=== PATIENT | male | born 1980 | race African-American/Black ===

== ENCOUNTER 2020-09-03 20:38 | Emergency (ER) | payer SELFPAY ==
[~2020-09-03] VITALS: Ht 180.3 cm; Wt 90.3 kg
[2020-09-03 21:08] VITALS: BP 166/100
[2020-09-03] MEDS ORDERED: LIDOCAINE-MPF 1%, 5ML ONE (21:27)
[2020-09-03] MEDS ORDERED: MUPIROCIN OINT 2%, 22GM TP ONE (21:30)
[2020-09-03] MEDS ORDERED: LIDOCAINE-MPF 1%, 5ML INFIL ONE (21:30)
[2020-09-03] MEDS ORDERED: SULFAMETH./TRIMETHOPRIM DS 800MG/160MG TABLET PO ONE (21:30)
[2020-09-03] MEDS ORDERED: SULFAMETH./TRIMETHOPRIM DS 800MG/160MG TABLET ONE (21:33)
[2020-09-03] MEDS ORDERED: NEOSPORIN OINT. PKT 1 PACKET ONE (21:33)
[2020-09-03] MEDS ORDERED: DIPH,PERTUSS(ACELL),TET VAC/PF 0.5 ML IM-VACC ONE ×2 (22:00→22:04)
== END 2020-09-03 22:15 | disposition home or self-care (01) ==
LOC: ED 22:00
DX: L03.115 Cellulitis of right lower limb (principal); L02.415 Cutaneous abscess of right lower limb
CPT/HCPCS: 10060; 90471; 90715; 99283